=== PATIENT | male | born 1965 | race Caucasian/White ===

== ENCOUNTER → 2024-10-12 | Outpatient (CLI) | payer BC ==
[~2024-10-12] MED LIST: CIPROFLOXACIN500 MG PO
[2024-10-12 10:38] LABS: HEMATOCRIT 43.1 % (42.0-52.0)
== END | disposition home or self-care (01) ==
LOC: LAB 10:02
PROVIDERS: ATTEND Specialist
DX: D50.9 Iron deficiency anemia, unspecified (principal); D69.6 Thrombocytopenia, unspecified